=== PATIENT | female | born 1955 | race Caucasian/White ===

== ENCOUNTER 2022-02-09 18:09 | Emergency (ER) | payer OTHER, SELFPAY ==
[2022-02-09 18:54] VITALS: BP 164/87; PULSE 82; RESP 16; TEMP 36.4; O2SAT 95; BMI 30.5
--- NOTE | 2022-02-09 19:02 | DI.RAD.S_ITS ---
PROCEDURE: XR CHEST 2V INDICATIONS: shortness of breath TECHNIQUE: 2 views of the chest were acquired. COMPARISON: None. FINDINGS: Surgical changes and devices: Clips in the left upper abdomen. Lungs and pleura: Streaky opacity at the left lung base. No pleural effusions or pneumothorax. Mediastinum: Mediastinal contours are normal. Heart size is normal. Bones and chest wall: No suspicious bony abnormalities. Soft tissues appear unremarkable. IMPRESSION: Streaky opacity at the left lung base. This could represent atelectasis or pneumonia. Dictated by: Michael Waldron M.D. on 02/09/2022 at 20:25 Approved by: Michael Waldron M.D. on 02/09/2022 at 20:27
[2022-02-09 21:44] LABS: Add Manual Diff / Slide Review NO; Basophils Absolute Auto 100 /uL (0-100); Eosinophils Absolute Auto 100 /uL (0-450); Hematocrit 42.1 % (36-46); Hemoglobin 14.3 g/dL (12.0-16.0); Lymphocytes Absolute Auto 800 /uL (1100-4500); Lymphocytes Percent Auto 11.9 % (25-40); Mean Corpuscular HGB Conc 33.9 % (30-36); Mean Corpuscular Hemoglobin 32.2 PG (26-34); Monocytes Absolute Auto 1100 /uL (0-900); Monocytes Percent Auto 16.1 % (3-14); Neutrophils Absolute Auto 4800 /uL (1500-7000); Platelet Count 245 X10^3/uL (150-400); Red Blood Cell Count 4.43 X10^6/uL (4.0-5.2); White Blood Cell Count 6.8 X10^3/uL (4.5-11.0)
[2022-02-09 21:45] VITALS: O2SAT 87
[2022-02-09 21:47] VITALS: O2SAT 92
[2022-02-09 21:57] LABS: Alanine Aminotransferase 20 IU/L (<35); Albumin 4.1 g/dL (3.5-5.0); Albumin Globulin Ratio 1.2 (1.0-2.8); Alkaline Phosphatase 71 U/L (38-126); Aspartate Aminotransferase 26 IU/L (14-36); BUN Creatinine Ratio 15.1 (6-22); Bilirubin Total 0.4 mg/dL (0.2-1.3); Blood Urea Nitrogen 16 mg/dL (7-17); Calcium 9.3 mg/dL (8.4-10.2); Carbon Dioxide 22 mmol/L (22-32); Chloride 105 mmol/L (98-107); Estimated Glomerular Filt Rate 58 mL/min (>60); Globulin 3.4 g/dL (1.7-4.1); Glucose 127 mg/dL (80-110); HEMOLYSIS < 15 (0-50); Lactate (Lactic Acid) 1.3 mmol/L (0.7-2.1); Potassium 3.7 mmol/L (3.4-5.1); Sodium 139 mmol/L (137-145); Total Protein 7.5 g/dL (6.3-8.2)
--- NOTE | 2022-02-09 22:03 | ED_ITS ---
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 She took a home COVID test and presents here for evaluation. Her test was positive. She denies nausea or vomiting. Denies any diarrhea or constipation. She is not dizzy nor weak or lightheaded. Related Data Previous Rx's Medication Instructions Recorded benzonatate 200 mg capsule 200 mg PO BID PRN cough #20 caps 02/09/22 nirmatrelvir 150 mg-ritonavir 100 See Rx Instructions PO .COMPLEX 02/09/22 mg tablets in a dose pack (EUA) #20 ea (Paxlovid) Allergies Allergy/AdvReac Type Severity Reaction Status Date / Time erythromycin base Allergy Chest Pain Verified 02/09/22 19:01 Penicillins Allergy Verified 02/09/22 19:01 Sulfa (Sulfonamide Allergy Chest Pain Verified 02/09/22 19:01 Antibiotics) acetaminophen [From Vicodin] AdvReac Verified 02/09/22 19:01 codeine AdvReac Verified 02/09/22 19:01 hydrocodone [From Vicodin] AdvReac Verified 02/09/22 19:01 Review of Systems Review of Systems Narrative: GENERAL: Denies chills, fatigue, malaise, fever, sweats. HEENT: Denies sinus pain, ear pain, sore throat, difficulty swallowing, dizziness. RESPIRATORY: See HPI. CARDIOVASCULAR: Denies chest pain, palpitations, orthopnea, edema, GASTROINTESTINAL: Denies nausea, vomiting, abdominal pain, diarrhea, constipation, melena. : Denies dysuria, frequency, incontinence, hematuria, urinary retention. MUSCULOSKELETAL: denies weakness, joint pain, or bony pain SKIN: Denies rash, skin lesions, or other NEUROLOGIC: Denies weakness, headache, numbness, change in speech, confusion, seizures, incoordination. PSYCHIATRIC: No concerning psychosocial issues. 12 point review of systems is negative except for those stated above Patient History Social History Smoking Status: Never smoker Smoking Status: Never smoker Substance Use Type: does not use Exam Narrative Exam Narrative: GENERAL: [66] year old patient appears stated age. Well-developed patient, in mild distress. HEAD: Atraumatic. Normocephalic. EYES: Pupils equal round and reactive. Extraocular motions intact. No scleral icterus. No injection or drainage. ENT: Nose without bleeding, purulent drainage. Throat without erythema, tonsillar hypertrophy or exudate. Airway patent. NECK: Trachea midline. Non tender CARDIOVASCULAR: Regular rate and rhythm without murmurs, gallops, or rubs. RESPIRATORY: Clear to auscultation. Breath sounds equal bilaterally. No wheezes, rales, or rhonchi. Occasional dry hacking cough but no hypoxemia or increased work of breathing such as tachypnea, belly breathing, use of intercostal GASTROINTESTINAL: Abdomen soft, non-tender, nondistended. EXTREMITIES: No edema or joint tenderness. BACK: Nontender without deformity or crepitance. No flank tenderness. NEURO: AOx3. SKIN: No rash or erythema of visible areas Initial Vital Signs Initial Vital Signs: Vital Signs Temperature 97.6 F 02/09/22 18:54 Pulse Rate 82 02/09/22 18:54 Respiratory Rate 16 02/09/22 18:54 Blood Pressure 164/87 H 02/09/22 18:54 Pulse Oximetry 95 02/09/22 18:54 Oxygen Delivery Method 02/09/22 18:54 Course Orders Ordered: ED Orders 02/09/22 19:02 XR chest 2V Stat EKG-12 Lead Stat Measure peak expiratory flow ONCE RT Consult Eval and Treat Now 02/09/22 21:37 Complete Blood Count AUTO DIFF Stat Comprehensive Metabolic Panel Stat Lactate (Lactic Acid) Stat Vital Signs Vital signs: Vital Signs - 8 hr 02/09/22 18:54 02/09/22 21:45 02/09/22 21:47 Temperature 97.6 F Pulse Rate 82 Respiratory Rate 16 Blood Pressure 164/87 H Pulse Oximetry 95 87 L 92 Oxygen Delivery Method Room Air Room Air Nasal Cannula Oxygen Flow Rate 2 MDM - URI/Sore Throat Lab Data Result diagrams: 02/09/22 21:37 02/09/22 21:37 Labs: Lab Results 02/09/22 02/09/22 02/09/22 Range/Units 21:37 21:37 21:37 WBC 6.8 (4.5-11.0) X10^3/uL RBC 4.43 (4.0-5.2) X10^6/uL Hgb 14.3 (12.0-16.0) g/dL Hct 42.1 (36-46) % MCV 95.0 (80-100) fL MCH 32.2 (26-34) PG MCHC 33.9 (30-36) % RDW 13.0 (11.6-14.8) % Plt Count 245 (150-400) X10^3/uL Neut % (Auto) 70.0 (50-75) % Lymph % (Auto) 11.9 L (25-40) % [place] % (Auto) 16.1 H (3-14) % Eos % (Auto) 1.0 L (2-4) % Baso % (Auto) 1.0 (0-2) % Neut # (Auto) 4800 (3334-8476) /uL Lymph # (Auto) 800 L (5280-1082) /uL [place] # (Auto) 1100 H (0-900) /uL Eos # (Auto) 100 (0-450) /uL Baso # (Auto) 100 (0-100) /uL Sodium 139 (137-145) mmol/L Potassium 3.7 (3.4-5.1) mmol/L Chloride 105 (98-107) mmol/L Carbon Dioxide 22 (22-32) mmol/L BUN 16 (7-17) mg/dL Creatinine 1.06 H (0.52-1.04) mg/dL Estimated GFR 58 L (>60) mL/min BUN/Creatinine Ratio 15.1 (6-22) Glucose 127 H (80-110) mg/dL Lactate 1.3 (0.7-2.1) mmol/L Calcium 9.3 (8.4-10.2) mg/dL Total Bilirubin 0.4 (0.2-1.3) mg/dL AST 26 (14-36) IU/L ALT 20 (<35) IU/L Alkaline Phosphatase 71 (38-126) U/L Total Protein 7.5 (6.3-8.2) g/dL Albumin 4.1 (3.5-5.0) g/dL Globulin 3.4 (1.7-4.1) g/dL Albumin/Globulin Ratio 1.2 (1.0-2.8) Imaging Data Chest x-ray: Radiologist's Impression: [place] [id number] [place] [id number] ReportSigned Patient: Sue Cruz MMR#: [id number]: 02/06/1965Acct:[id number]/Sex: 57 / FDate of Service: 02/09/22Loc: EDAccession Number: [id number] Procedure: XR chest 1V Ordering Provider: Mal Burns D.O. PROCEDURE: XR CHEST 1V INDICATIONS: suspected sepsis TECHNIQUE: One view of the chest was acquired. COMPARISON: [facility], CT, CT CHEST ABDOMEN W CON, 01/30/2022, 14:27. [facility], CR, XR CHEST 1V, 01/29/2022, 14:30. FINDINGS: Surgical changes and devices: None. Lungs and pleura: Lungs are clear. No pleural effusions or pneumothorax. Mediastinum: Mediastinal contours appear normal. Heart size is normal. Bones and chest wall: No suspicious bony lesions. Overlying soft tissues appear unremarkable. IMPRESSION: No acute cardiopulmonary abnormality. Dictated by: Michael Waldron M.D. on 02/09/2022 at 20:24 Approved by: Michael Waldron M.D. on 02/09/2022 at 20:25 Discharge Plan Departure Patient Disposition: Home Clinical Impression: COVID-19 Instructions: COVID-19 Activity Restrictions/Additional Instructions: As we discussed I have written a prescription for Paxlovid to your pharmacy with an alteration in dosing regimen based on your renal function *You have been diagnosed with [ COVID-19] *What to do: ?* per recommendations from the CDC and the [facility] Department of Health ?* stay home except to get medical care. ?Restrict activities outside your home, except for getting medical care. ?Do not go to work, school, or public areas. ?Avoid using public transportation, ride sharing, or taxis. ?* separate yourself from other people in your home. ?* call ahead before visiting your doctor ?* Wear a facemask ?* Cover your coughs and sneezes ?* Clean your hands often ?* Avoid sharing household items ?* Clean all high-touch services every day ?* Monitor your symptoms and seek prompt medical attention if your illness is worsening, particularly with difficulty in breathing. You may discontinue your isolation when: ?1. You have been fever-free for at least 24 hours without the use of fever reducing medication, AND ?2. Your symptoms are getting better, AND ?3. At least 5 days have passed since symptoms first appeared ?4. If you have fever, continue to stay home until fever resolves Individuals with laboratory confirmed COVID-19 who have not had any symptoms may discontinue home isolation when at least 5 days have passed since the date of angel arredondo first COVID-19 diagnostic test and have had no subsequent illness You should notifiy any friends and family that have been in close contact *If up to date on COVID Vaccines, then they do not need to quarantine unless symptoms develop. Get tested on day 5 (or sooner if symptoms develop). Take precautions and watch for symptoms until day 10 *If NOT up to date on COVID Vaccines, then CDC recommends quarantine for at least 5 full days. Wear a well fitted mask at home if you must be around others. If they ?develop symptoms they should get tested. If they remain asymptomatic they should get tested on day 5. They should take precautions and monitor for symptoms until day 10. Prescriptions: New benzonatate 200 mg capsule 200 mg PO BID PRN (Reason: cough) Qty: 20 0RF Paxlovid (EUA) 150-100 mg tablets,dose pack See Rx Instructions .ROUTE .COMPLEX Qty: 20 0RF Rx Instructions: orally per package directions RENAL Dosing for GFR 58
[2022-02-09 22:31] VITALS: BP 120/70; PULSE 85; O2SAT 94
== END 2022-02-09 22:32 | disposition home or self-care (01) ==
PROVIDERS: Emergency Provider Emergency Medicine
DX: U07.1 COVID-19 (principal)
CPT/HCPCS: 36415; 71046; 80053; 83605; 85025; 99284